=== PATIENT | female | born 1980 | race Caucasian/White ===

== ENCOUNTER 2022-05-14 10:59 | Emergency (ER) | payer BC, SELFPAY ==
[2022-05-14 11:45] VITALS: BMI 38.9
--- NOTE | 2022-05-14 11:55 | XRR_ITS ---
PROCEDURE INFORMATION: Exam: XR Right Knee Exam date and time: 05/14/2022 12:03 PM Age: 42 years old Clinical indication: Pain; Knee; Right; Additional info: Right knee pain TECHNIQUE: Imaging protocol: Radiologic exam of the right knee. Views: 3 views. COMPARISON: No relevant prior studies available. FINDINGS: Bones/joints: Small joint effusion and minimal patellar spurring. No acute fracture dislocation. Probable mild osteopenia. Well maintained joint spaces on this nonweightbearing exam. Soft tissues: Normal. Other findings: Three views submitted. XR/XR knee RT 3V* [id number] IMPRESSION: No acute fracture. Other findings as above.
--- NOTE | 2022-05-14 12:06 | ED_ITS ---
HPI - Extremity Problem General: Chief complaint: Extremity Injury, Lower Stated complaint: knee pain Time Seen by Provider: 05/14/22 11:07 History of Present Illness: Patient is a 42-year-old female comes to the ED with right knee pain. Patient injured right knee approximately 3-1/2 months ago. She describes having a twisted knee injury when she went to stand up. She went to [place] emergency department and was diagnosed with right knee sprain and put in a knee immobilizer. She then followed up with her PCP and she still having pain. She has not been referred to Ortho. She came here to the ED because she heard there are some good Ortho docs here in [place]. She rates her pain currently a 10 out of 10 in her right knee. Pain with any range of motion or weightbearing. Associated symptoms: Deny chest pain, fever(s) or rash Review of Systems Const: Denies: fever(s), chills or fatigue Eyes: Denies: change in vision or eye discomfort ENMT: Denies: throat pain, odynophagia, nasal discharge or nasal congestion Card: Denies: chest pain, palpitations, edema, swelling of feet/ankles, dyspnea on exertion or orthopnea Resp: Denies: dyspnea, productive cough or non-productive cough GI: Denies: abdominal pain, nausea, vomiting, diarrhea, constipation or hematochezia : Denies: flank pain, dysuria or hematuria Musc: Reports: extremity pain (Right knee pain) and limited range of motion (Right knee); Denies: neck pain, back pain or extremity swelling Skin/Breast: Denies: rash or new lesions Neuro: Denies: headache(s), numbness in extremities or weakness in extremities [facility] ED PFSH: Medical History No pertinent family history Surgical History No pertinent past surgical history Physical Exam Const: COMMON NORMALS: patient oriented x3 HENMT: COMMON NORMALS: normocephalic HEAD & SCALP: normocephalic MOUTH: Normal oral and palatal mucosa present THROAT: posterior oropharynx normal and uvula midline Neck/C-Spine: COMMON NORMALS: supple GENERAL: Yes normal visual inspection Resp: COMMON NORMALS: normal respiratory effort, No retractions, No use of accessory muscles and clear to auscultation bilaterally AUSCULTATION: clear to auscultation bilaterally Cardio: COMMON NORMALS: regular rate, regular rhythm, S1 normal heart sound present, S2 normal heart sound present, No gallops present (Cardio), No clicks present (Cardio), No murmurs present (Cardio) and Peripheral pulses 2+ through out RATE: regular rate RHYTHM: regular rhythm HEART SOUNDS: S1 normal heart sound present and S2 normal heart sound present PERIPHERAL PULSES: Peripheral pulses 2+ throughout GI: COMMON NORMALS: Normal to inspection, nondistended, normoactive bowel sounds present, Soft to palpation, non-tender and no masses PALPATION: Yes Soft to palpation : COMMON NORMALS: Yes no CVA tenderness BLADDER/KIDNEY EXAM: Yes no CVA tenderness Back/Pelvis: COMMON NORMALS: no CVA tenderness Extremity: NARRATIVE EXTREMITY EXAM: Right knee?tenderness to palpation throughout her knee. Limited range of motion due to pain. Neurovascular intact distally. Neuro: COMMON NORMALS: patient oriented x3 GAIT: Yes Normal gait present Skin: GENERAL SKIN EXAM: dry skin Course Vital Signs: Vital signs: Vital Signs Pulse Rate 86 05/14/22 13:35 Respiratory Rate 16 05/14/22 13:35 Blood Pressure 177/111 05/14/22 13:47 Pulse Oximetry 95 05/14/22 13:35 Oxygen Delivery Me thod 05/14/22 13:35 MDM - Extremity (Nontraumatic) Medical Decision Making Patient is a 42-year-old female comes to the ED with right knee pain. Patient injured right knee approximately 3-1/2 months ago. She describes having a twisted knee injury when she went to stand up. She went to [place] emergency department and was diagnosed with right knee sprain and put in a knee immobilizer. She then followed up with her PCP and she still having pain. She has not been referred to Ortho. She came here to the ED because she heard there are some good Ortho docs here in [place]. She rates her pain currently a 10 out of 10 in her right knee. Pain with any range of motion or weightbearing.vital stable. Right knee?tenderness to palpation throughout her knee. Limited range of motion due to pain. Neurovascular intact distally. Right knee x-ray shows no acute findings, but notes a small joint effusion and patellar spurring. Patient was put in a knee immobilizer and I placed an order with case management for patient be referred to Ortho for follow-up of knee pain. Return to ED precautions given. Patient understood and agreed with plan. Lab Data Radiology Impressions Knee X-Ray 05/14/22 11:55 IMPRESSION: No acute fracture. Other findings as above. Discharge Plan Discharge Patient Disposition: Home Clinical Impression: Knee pain, right Qualifiers: Chronicity: unspecified Qualified Code(s): M25.561 - Pain in right knee Condition: Stable Prescriptions: New ibuprofen 800 mg tablet 800 mg PO Q8H PRN (Reason: pain) Qty: 20 0RF Discharge Orders: Discharge ED (Routine); Ordered 05/14/22 Ordered By: Lukasz Blackwell Referrals: Chanda Rinaldi FNP [Primary Care Provider] - Discharge Diet: Regular Discharge Activity: Increase activity as tolerated Patient Instructions: Knee Pain (ED) Activity Restrictions/Additional Instructions: Follow-up with medical provider as directed. Case management should contact you in the next several days to set up an appointment with Orthopedic surgeon for follow-up. Take medications as prescribed. Wear knee immobilizer. Return to the ER or your medical provider if condition worsens. Please read and understand discharge instructions. Thank you for choosing [facility] for your healthcare needs today. Please realize this is an emergency room and that we are providing you with a medical screening exam and this may not be complete and all inclusive of all the testing and or work up that you may need to determine your ailment or severity of your illness. It is very important that you follow up as instructed or that you return to the Emergency Department should you have concerns or if your condition changes or worsens in any way. Coding Level of Care Code ED Commercial Marketing Specialist for Antonino Green
[2022-05-14 12:21] VITALS: RESP 16
[2022-05-14] MEDS: morphine 4 mg/mL SDV 1 mL IM (12:21)
[2022-05-14 13:35] VITALS: BP 210/142; PULSE 86; RESP 16; O2SAT 95
[2022-05-14 13:47] VITALS: BP 177/111
--- NOTE | 2022-05-16 09:29 | DCPLANNER ---
Addendum entered by Winsome Page 05/24/22 08:44: Patient had a follow up appointment scheduled with ortho - patient did attend appointment. Addendum entered by Winsome Page 05/18/22 09:46: Patient has a follow up appointment scheduled for Monday, May 23, 2022 at 4:[address] Blackwell at ortho. Clinic will call patient with appointment information. Addendum entered by Winsome Page 05/16/22 14:29: industrial sales manager received the following message from the ortho clinic regarding follow up appointment: attempt made to contact patient - left vm and mailed letter to contact our clinic to schedule w/ dr blackwell Original Note: industrial sales manager had message to schedule a follow up appointment for patient with ortho. industrial sales manager sent patients information to the front office staff at ortho. Patients information will be printed and reviewed. Clinic will call patient with appointment information.
== END 2022-05-14 13:56 | disposition home or self-care (01) ==
PROVIDERS: Emergency Provider Physician Assistant; PCP Nurse Practitioner Family
DX: M25.561 Pain in right knee (principal)
CPT/HCPCS: 29530; 73562; 96372; 99284; J2270

== ENCOUNTER 2022-05-23 16:15 | Outpatient (CLI) | payer BC, SELFPAY | END 2022-05-23 16:16 | disposition home or self-care (01) | LOC: SPT 16:15 | PROVIDERS: PCP Nurse Practitioner Family; Visit Provider Student in an Organized Health Care Education/Training Program | DX: Z46.89 Encounter for fitting and adjustment of other specified devices (principal); S83.206D Unspecified tear of unspecified meniscus, current injury, right knee, subsequent encounter; X58.XXXD Exposure to other specified factors, subsequent encounter | CPT/HCPCS: 97760; L1812 ==

== ENCOUNTER 2022-06-17 08:55 | Outpatient (CLI) | payer BC, SELFPAY ==
--- NOTE | 2022-06-17 09:30 | MR_ITS ---
WS: [id number] MRI RIGHT KNEE HISTORY: Twisting injury. Pain. COMPARISON: Radiograph 05/14/2022 Anterior cruciate ligament: Intact. Posterior cruciate ligament: Intact. Medial collateral ligament: Intact. Posterior lateral corner structures: Intact. Medial menisci: Mild surface fraying along the posterior horn towards the meniscal root. No definite tear is identified. Anterior horn is normal. Lateral meniscus: Intact. Normal signal, size and shape. Extensor mechanism: Distal quadriceps tendon and patellar tendons are intact. Fluid and soft tissue: Very small suprapatellar joint effusion. No Marrufo's cyst. There is a small marquis unt of edema extending along the inferior medial knee. Appears reactive. Osseous and articular structures: Patellofemoral compartment: Very mild thinning of the cartilage. No marrow edema. Medial compartment: Mild cortical and cartilage irregularity with a small amount of underlying marrow edema involving the nonweightbearing surface of the anterior medial femoral condyle. No fractures ar e identified. Cartilage along the weightbearing surface is preserved. Lateral compartment: Normal. No fractures or marrow edema. MR/MR knee RT wo con* [id number] IMPRESSION: 1. No ACL tear. 2. Mild fraying along the surfaces posterior horn medial meniscus towards the meniscal root. No tear. 3. Mild osteochondral injury involving the nonweightbearing surface of the ant erior medial femoral condyle. There is mild underlying marrow edema with osteoc hondral irregularity.
== END 2022-06-17 08:56 | disposition home or self-care (01) ==
PROVIDERS: PCP Nurse Practitioner Family; Visit Provider Student in an Organized Health Care Education/Training Program
DX: M25.561 Pain in right knee (principal)
CPT/HCPCS: 73721

== ENCOUNTER 2022-07-25 11:10 | Emergency (ER) | payer BC, SELFPAY ==
[2022-07-25 11:28] VITALS: BP 183/123; PULSE 126; RESP 16; TEMP 36.7; O2SAT 98; BMI 42.7
--- NOTE | 2022-07-25 11:51 | USCV_ITS ---
Evaristo Hardy Age: 42 Gender: F : 1980 Exam Date: 07/25/2022 12:01 Ordering Phys: Alicia Linda Technologist: MICHAEL Exam Location: [facility] [place] Indication: Rt LE Pain in popliteal area HISTORY: Lower extremity pain. PROCEDURES: Venous duplex imaging was performed in only the right lower extremity. The following venous structures were evaluated: common femoral vein, profunda vein, proximal portion of the greater saphenous vein, superficial femoral vein, and the popliteal vein. In addition, the posterior tibial and peroneal trunk were evaluated. Serial compression, augmentation maneuvers, and spectral Doppler flow evaluation were performed. FINDINGS: No evidence of DVT seen in any vessel visualized at this time. CONCLUSIONS No evidence of right lower extremity DVT. Chapin Prince MD (Electronically Signed) Final Date: 25 Jul 2022 12:42 S
--- NOTE | 2022-07-25 11:52 | W.ED.EXTPRO ---
HPI - Extremity Problem General: Chief complaint: Extremity Injury, Lower Stated complaint: Right leg/Knee injury, Swollen Time Seen by Provider: 07/25/22 12:00 Source: patient Mode of arrival: ambulatory Limitations: no limitations History of Present Illness: Patient presents emergency department today for evaluation treatment of acute worsening of right knee issues. Patient reports chronic issues with her right knee now over the last 6 to 8 months. She has already been seen and evaluated here in the emergency department where she received a referral to orthopedics. Orthopedics did an MRI with some mild findings but no significant concerns requiring immediate surgical intervention. Patient received a steroid injection and started physical therapy approximately 3 weeks ago. Patient reports she has not noticed any improvement of her right knee pain and states it is actually getting a little bit worse. She denies any new injuries to the knee. She comes in as her right knee became swollen and red last night. Patient has a photo on her phone which does correlate with her description of redness around the joint. There is no significant erythema today but, patient is more acutely tender in the popliteal region since last night as well. Patient is tachycardic and hypertensive. She reports a history of hypertension and is supposed be on blood pressure medicine but, ran out and has not had any type of follow-up with her primary care doctor. Patient states her heart rate is up because she is in pain. She reports she has not had anything for her pain today. Review of Systems General: Reports: 10 or more systems reviewed and unremarkable except in HPI and below PFSH ED PFSH: Medical History No pertinent family history Surgical History No pertinent past surgical history Physical Exam Const: COMMON NORMALS: no acute distress, patient oriented x3 and alert HENMT: COMMON NORMALS: normocephalic, atraumatic and hearing grossly normal bilaterally HEAD & SCALP: normocephalic and atraumatic Eye: COMMON NORMALS: Equal, round and reactive pupils present, EOMs intact bilaterally and conjunctivae normal CONJUNCTIVA: Yes conjunctivae normal PUPIL: Yes Equal, round and reactive pupils present Neck/C-Spine: COMMON NORMALS: full ROM and no JVD Lymph: LYMPHATIC: no lymphadenopathy noted Resp: COMMON NORMALS: normal respiratory effort, No retractions and No use of accessory muscles Cardio: COMMON NORMALS: no JVD and regular rate RATE: regular rate Extremity: NARRATIVE EXTREMITY EXAM: Patient has tenderness on palpation to the right popliteal region without significant pain into the right calf. Homans negative. Patient does have some flexion extension of the right knee but indicates pain with mobility. Neuro: COMMON NORMALS: patient oriented x3 SENSORIUM/ORIENTATION: Yes alert Psych: COMMON NORMALS: mental status grossly normal, Normal thought process present, cooperative and normal affect THOUGHT PROCESS: Normal thought process present Skin: COMMON NORMALS: no rashes or lesions noted and turgor normal GENERAL SKIN EXAM: no rashes or lesions noted and turgor normal Course Vital Signs: Vital signs: Vital Signs Temperature 98.0 F 07/25/22 11:28 Pulse Rate 126 H 07/25/22 11:28 Respiratory Rate 16 07/25/22 11:28 Blood Pressure 183/123 07/25/22 11:28 Pulse Oximetry 98 07/25/22 11:28 Oxygen Delivery Me thod Room Air 07/25/22 11:28 MDM - Extremity (Nontraumatic) Medical Decision Making Patient has had evaluation by orthopedics as well as an MRI. Patient is currently on a treatment plan involving steroid injections and physical therapy. Patient states that physical therapy is not helping. She does have a photo of her knee last night where there is noticeable erythema around the joint and, patient reports acutely worsening right popliteal pain. For that reason we did go ahead and proceed on with an ultrasound to rule out DVT of her acute worsening of pain in this area. Ultrasound was negative for DVT. Patient was started on NSAIDs and topical NSAID for her pain. Encouraged her to call orthopedics and let them know of her worsening discomfort as they may wish to move her follow-up appointment up as it does indicate they were going to discuss the possibility of a knee scope at that time. Differential Diagnosis Likely cellulitis, superficial thrombophlebitis and deep vein thrombosis of lower extremity (Internal derangement of right knee, meniscal injury) Discharge Plan Discharge Patient Disposition: Home Clinical Impression: Knee pain, right, Popliteal pain Condition: Stable Prescriptions: New Celebrex 100 mg capsule 100 mg PO BID 10 Days Qty: 20 0RF Voltaren Arthritis Pain 1 % gel 4 g topical QID Qty: 100 0RF Rx Instructions: apply to right knee- front and back No Action (DME) Hinged knee brace See Rx Instructions .Route .MEDSUPPLY Qty: 1 0RF Rx Instructions: As directed cyclobenzaprine 10 mg tablet 10 mg PO TID PRN (Reason: muscle spasm) 14 Days Qty: 42 0RF ibuprofen 800 mg tablet 800 mg PO Q8H PRN (Reason: pain) Qty: 20 0RF Discharge Orders: Discharge ED (Routine); Ordered 07/25/22 Ordered By: Alicia Linda Referrals: Chanda Rinaldi FNP [Primary Care Provider] - Discharge Diet: Usual diet Discharge Activity: Limit activity as instructed Patient Instructions: Knee Pain (ED) Activity Restrictions/Additional Instructions: Given the development of redness and pain in the back of your knee, we did rule out a blood clot today in the emergency department. I Ashwini try you on some new medication that I do not think you have attempted before. While you take Celebrex, do not take any other Aleve, Advil, ibuprofen, or Motrin. You can still take Tylenol. Keep wearing your brace as recommended. I will reach out to our case management workers to see about your upcoming appointment however, if you have not heard anything in the next day or 2 I do recommend reaching out to the orthopedic office to discuss moving up your follow-up appointment to discuss continued knee issues. Coding Level of Care Code ED Directional Survey Drafter for Antonino Green
[2022-07-25] MEDS: naproxen 500 mg Tablet PO (12:20)
[2022-07-25] MEDS: tizanidine 4 mg Tablet PO (12:20)
== END 2022-07-25 13:26 | disposition home or self-care (01) ==
PROVIDERS: Emergency Provider Physician Assistant; PCP Nurse Practitioner Family
DX: M25.561 Pain in right knee (principal)
CPT/HCPCS: 93971; 99284

== ENCOUNTER 2023-04-05 13:45 | Emergency (ER) | payer BC, SELFPAY ==
--- NOTE | 2023-04-05 13:47 | XR_ITS ---
WS: [id number] Portable AP upright chest, 04/05/2023 Clinical Data: cp Comparison: None. Findings: No nodules, masses or effusions are seen. The heart is normal. The pulmonary vascularity is not increased. No pneumonia or pneumothorax is seen. Impression: Negative chest.
--- NOTE | 2023-04-05 13:47 | ECG_ITS ---
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 Measurements Intervals [place] Rate: 90 P: 56 MI: 195 QRS: 7 QRSD: 88 T: 30 QT: 356 QTc: 437 Interpretive Statements SINUS RHYTHM POSSIBLE LEFT ATRIAL ENLARGEMENT [-0.1mV P-WAVE IN V1/V2] POSSIBLE LEFT VENTRICULAR HYPERTROPHY [VOLTAGE CRITERIA PLUS LAE OR QRS WIDENING] NONSPECIFIC ST & T-WAVE ABNORMALITY INTERPRETATION BASED ON A DEFAULT AGE OF 40 YEARS No previous ECG available for comparison Electronically Signed On 04-05-2023 18:26:37 ATMOSPHERIC CHEMIST by Gentry Yost M.D. [email or web address]
[2023-04-05 13:55] VITALS: BP 150/108; PULSE 93; RESP 16; O2SAT 98; BMI 41.1
--- NOTE | 2023-04-05 13:56 | ED_ITS ---
HPI - Chest Pain 2 General: Chief Complaint: Chest Pain Stated Complaint: chest pain Time Seen by Provider: 04/05/23 13:46 Mode of arrival: ambulatory Limitations: no limitations History of Present Illness: 43-year-old female who states she has a history of high blood pressure states that today she was not feeling well did take her blood pressure was elevated she states she been having some chest pain along with headache and abdominal pain. States her pain is a 5 out of 10 she had went to the clinic and had hypertension there and was sent here. She is on metoprolol extended release 50 mg for her blood pressure no other meds. She denies any vomiting or diarrhea. Associated symptoms: Reports abdominal pain; Deny dyspnea, fever(s), nausea or vomiting Review of Systems 2 Const: Denies: fever(s), chills, body aches or change in appetite ENMT: Denies: throat pain or dental pain Card: Reports: chest pain Resp: Denies: dyspnea GI: Reports: abdominal pain; Denies: nausea, vomiting or diarrhea Musc: Denies: neck pain or back pain Skin/Breast: Denies: rash Neuro: Reports: headache(s) PFSH ED 2 PFSH: Medical History No pertinent family history Surgical History No pertinent past surgical history Physical Exam 2 Const: COMMON NORMALS: no acute distress, patient oriented x3 and healthy appearing HENMT: COMMON NORMALS: normocephalic and atraumatic HEAD & SCALP: n ormocephalic and atraumatic Eye: COMMON NORMALS: conjunctivae normal CONJUNCTIVA: Yes conjunctivae normal Neck/C-Spine: COMMON NORMALS: full ROM and supple Chest: COMMONS NORMALS: normal inspection of the chest Resp: COMMON NORMALS: normal respiratory effort, No retractions, No use of accessory muscles and clear to auscultation bilaterally AUSCULTATION: clear to auscultation bilaterally Cardio: COMMON NORMALS: regular rate, regular rhythm and No murmurs present (Cardio) RATE: regular rate RHYTHM: regular rhythm GI: COMMON NORMALS: Normal to inspection, nondistended, normoactive bowel sounds present, Soft to palpation, non-tender and no masses PALPATION: Yes Soft to palpation Extremity: COMMON NORMALS: normal to inspection and full ROM Neuro: COMMON NORMALS: patient oriented x3, moves all extremities and no focal motor deficits Psych: COMMON NORMALS: mental status grossly normal, Normal thought process present and cooperative THOUGHT PROCESS: Normal thought process present Skin: COMMON NORMALS: no rashes or lesions noted and no wounds GENERAL SKIN EXAM: no rashes or lesions noted Course 2 Vital Signs: Vital signs: Vital Signs Pulse Rate 69 04/05/23 17:06 Respiratory Rate 16 04/05/23 14:17 Blood Pressure 152/67 04/05/23 17:06 Pulse Oximetry 97 04/05/23 17:06 Oxygen Delivery Me thod Room Air 04/05/23 13:55 MDM - Chest Pain Medical Decision Making Patient presents here with chest pain atypical in nature patient's blood pressure has improved here we will up her metoprolol from 50 daily to 100 she is take a log of her blood pressure follow-up with PCP she has no signs of acute coronary syndrome she is stable for discharge return if worsening. Medical Records I reviewed the patient's medical records. Lab Data I reviewed the patient's lab results. 04/05/23 13:57 04/05/23 13:57 Laboratory Results WBC 12.77 10^3/uL (3.29-11.43) H 04/05/23 13:57 RBC 5.23 10^6/uL (3.85-5.65) 04/05/23 13:57 Hgb 14.90 g/dL (11.27-16.99) 04/05/23 13:57 Hct 45.6 % (36-47) 04/05/23 13:57 MCV 87.2 fl (85-98) 04/05/23 13:57 MCH 28.5 pg (27-33) 04/05/23 13:57 MCHC 32.7 g/dL (30-55) 04/05/23 13:57 RDW 14.6 % (12.1-15.1) 04/05/23 13:57 Plt Count 303 10^3/cmm (157-399) 04/05/23 13:57 MPV 10.9 fL (7.4-10.4) H 04/05/23 13:57 Neut % (Auto) 74.0 % 04/05/23 13:57 Lymph % (Auto) 19.1 % 04/05/23 13:57 [place] % (Auto) 5.2 % 04/05/23 13:57 Eos % (Auto) 0.5 % 04/05/23 13:57 Baso % (Auto) 0.6 % 04/05/23 13:57 Neut # (Auto) 9.45 10^3/uL (1.8-7.7) H 04/05/23 13:57 Lymph # (Auto) 2.4 10^3/uL (0.8-4.8) 04/05/23 13:57 [place] # (Auto) 0.7 10^3/uL (0.2-0.9) 04/05/23 13:57 Eos # (Auto) 0.1 10^3/uL (0.0-0.8) 04/05/23 13:57 Baso # (Auto) 0.1 10^3/uL (0.0-0.1) 04/05/23 13:57 Nucleated RBC % (auto) 0 % 04/05/23 13:57 Nucleated RBCs # 0.0 /100WBC 04/05/23 13:57 PT 12.40 SECONDS (12.1-14.9) 04/05/23 13:57 INR 0.89 (0.8-1.2) 04/05/23 13:57 Sodium 139 mmol/L (136-145) 04/05/23 13:57 Potassium 4.4 mmol/L (3.5-5.1) 04/05/23 13:57 Chloride 104 mmol/L (98-107) 04/05/23 13:57 Carbon Dioxide 18 mmol/L (22-29) L 04/05/23 13:57 Anion Gap 21.4 (5-19) H 04/05/23 13:57 BUN 14 mg/dL (6-20) 04/05/23 13:57 Creatinine 0.8 mg/dL (0.5-0.9) 04/05/23 13:57 GFR Calculation 79.0 mL/min (90-130) L 04/05/23 13:57 Glucose 109 mg/dL (65-115) 04/05/23 13:57 Calculated Osmolality 289 mOsm/kg (285-295) 04/05/23 13:57 Calcium 9.9 mg/dL (8.5-10.5) 04/05/23 13:57 Total Bilirubin 0.2 mg/dL (0.15-1.2) 04/05/23 13:57 AST 15 U/L (0-32) 04/05/23 13:57 ALT 19 U/L (0-33) 04/05/23 13:57 Alkaline Phosphatase 78 U/L (35-105) 04/05/23 13:57 Troponin T Baseline 8 ng/L (0-10) 04/05/23 13:57 Troponin T 120 Minute 7.55 ng/L (0-10) 04/05/23 16:48 Delta Troponin T -0.45 ABS# (0-10) L 04/05/23 16:48 Total Protein 6.8 g/dL (6.6-8.7) 04/05/23 13:57 Albumin 4.4 g/dL (3.5-5.2) 04/05/23 13:57 Globulin 2.4 g/dL (1.3-4.6) 04/05/23 13:57 Lipase 18 U/L (13-60) 04/05/23 13:57 All radiology interpretation(s) finalized by discharge EKG Data EKG 1: I personally reviewed and interpreted this EKG as follows: EKG interpretation date: 04/05/23 EKG interpretation time: 13:51 Interpretation: nsr hr [address] or t wave abnormalities qrs 88 qtc 404 EKG 2: I personally reviewed and interpreted this EKG as follows: EKG interpretation date: 04/05/23 EKG interpretation time: 15:50 Interpretation: nsr hr [address] or t wave abnormalities qrs 97 qtc 412 Discharge Plan Discharge Patient Disposition: Home Clinical Impression: Chest pain, Hypertension Condition: Stable Prescriptions: New metoprolol succinate 100 mg tablet extended release 24 hr 100 mg PO DAILY Qty: 30 0RF No Action (DME) Hinged knee brace See Rx Instructions .Route .MEDSUPPLY Qty: 1 0RF Rx Instructions: As directed cyclobenzaprine 10 mg tablet 10 mg PO TID PRN (Reason: muscle spasm) 14 Days Qty: 42 0RF ibuprofen 800 mg tablet 800 mg PO Q8H PRN (Reason: pain) Qty: 20 0RF metoprolol succinate 50 mg Tablet Extended Release 24 Hr 50 mg PO DAILY Aspir-81 81 mg Tablet,Delayed Release (Dr/Ec) 81 mg PO DAILY Discharge Orders: Discharge ED (Routine); Ordered 04/05/23 Ordered By: Michael Hudson Referrals: Chanda Rinaldi FNP [Primary Care Provider] - 1-3 days Discharge Diet: Advance as tolerated Discharge Activity: Resume usual activity Patient Instructions: Hypertension (ED) Coding Level of Care Code ED Wood Shingle Roofer for Antonino Green
[2023-04-05 14:00] VITALS: BP 137/95
[2023-04-05 14:06] LABS: Basophils # 0.1 10^3/uL (0.0-0.1); Basophils % 0.6 %; Eosinophils # 0.1 10^3/uL (0.0-0.8); Eosinophils % 0.5 %; Hematocrit 45.6 % (36-47); Lymphocytes # 2.4 10^3/uL (0.8-4.8); Lymphocytes % 19.1 %; Mean Corpuscular HGB Conc 32.7 g/dL (30-55); Mean Corpuscular Hemoglobin 28.5 pg (27-33); Mean Corpuscular Volume 87.2 fl (85-98); Mean Platelet Volume 10.9 fL (7.4-10.4); Monocytes # 0.7 10^3/uL (0.2-0.9); Monocytes % 5.2 %; Neutrophils # 9.45 10^3/uL (1.8-7.7); Nucleated Red Blood Cells % 0 %; Platelet Count 303 10^3/cmm (157-399); Red Blood Count 5.23 10^6/uL (3.85-5.65); Red Cell Distribution Width 14.6 % (12.1-15.1); White Blood Count 12.77 10^3/uL (3.29-11.43)
--- NOTE | 2023-04-05 14:08 | PC.PHAR ---
PT STATES WAS GIVEN 2 ZOFRAN 4 MG AT THE OFFICE. 04/05/23
[2023-04-05] MEDS: ondansetron 2 mg/ML SDV 2 mL 4 MG IVP (14:16)
[2023-04-05 14:17] VITALS: RESP 16; O2SAT 98
[2023-04-05] MEDS: morphine 4 mg/mL SDV 1 mL IVP (14:17)
[2023-04-05 14:20] LABS: INR 0.89 (0.8-1.2)
[2023-04-05 14:26] LABS: Troponin(5th) Baseline 8 ng/L (0-10)
[2023-04-05 14:32] LABS: Alanine Aminotransferase 19 U/L (0-33); Albumin Level 4.4 g/dL (3.5-5.2); Alkaline Phosphatase 78 U/L (35-105); Blood Urea Nitrogen 14 mg/dL (6-20); Calcium 9.9 mg/dL (8.5-10.5); Carbon Dioxide 18 mmol/L (22-29); Chloride 104 mmol/L (98-107); Creatinine Clr Calc Pharmacy 111.5642; Globulin 2.4 g/dL (1.3-4.6); Glucose 109 mg/dL (65-115); Lipase 18 U/L (13-60); Osmolality Calculated 289 mOsm/kg (285-295); Sodium 139 mmol/L (136-145); Total Bilirubin 0.2 mg/dL (0.15-1.2); Total Protein 6.8 g/dL (6.6-8.7)
[2023-04-05 14:42] LABS: Anion Gap 21.4 (5-19)
[2023-04-05 14:43] LABS: Aspartate Amino Transferase 15 U/L (0-32); Potassium 4.4 mmol/L (3.5-5.1)
--- NOTE | 2023-04-05 15:50 | ECG_ITS ---
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 Measurements Intervals [place] Rate: 90 P: 50 [place]: 198 QRS: 18 QRSD: 97 T: 29 QT: 365 QTc: 447 Interpretive Statements SINUS RHYTHM NONSPECIFIC ST & T-WAVE ABNORMALITY Compared to ECG 04/05/2023 13:51:02 No significant changes Electronically Signed On 04-05-2023 18:33:27 SLING OPERATOR by Gentry Yost M.D. [id number]
[2023-04-05 17:06] VITALS: BP 152/67; PULSE 69; O2SAT 97
[2023-04-05 17:37] LABS: Troponin 5 2HR 7.55 ng/L (0-10)
[2023-04-05 17:39] LABS: Troponin 5 2HR Delta -0.45 ABS# (0-10)
[2023-04-05 18:08] VITALS: BP 133/82; PULSE 70; O2SAT 97
== END 2023-04-05 18:10 | disposition home or self-care (01) ==
PROVIDERS: Emergency Provider Emergency Medicine; PCP Nurse Practitioner Family
DX: R07.9 Chest pain, unspecified (principal); I10 Essential (primary) hypertension; Z79.82 Long term (current) use of aspirin
CPT/HCPCS: 36415; 71045; 80053; 83690; 84484; 85025; 85610; 93005; 96374; 96375; 99285; J2270; J2405

== ENCOUNTER 2024-01-28 13:43 | Emergency (ER) | payer BC, SELFPAY ==
[2024-01-28 13:48] VITALS: BP 156/99; PULSE 107; RESP 18; TEMP 36.7; O2SAT 97; BMI 39.4
--- NOTE | 2024-01-28 15:08 | ED_ITS ---
HPI - General Adult 2 General: Chief complaint: General Medical Stated complaint: temp low, b/p uncontroble, infection on incision Time Seen by Provider: 01/28/24 14:05 History of Present Illness: 43-year-old female who presents to the mergency room complaining of generally not feeling well. 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 This was done several weeks ago postoperatively she had an infection in incision site and recently finished a course of clindamycin. A few days ago she had a couple episodes of diarrhea but that has resolved she actually states she is a little bit more constipated now she has been titrating down on prednisone she was on 10 mg daily she currently is on 7. Patient states her blood pressure has been fluctuating as well today is generally been running a little bit elevated. No fever sweats or chills. She not had any syncopal episodes Associated symptoms: Deny chest pain, dyspnea or rash Related Data Home Medications Medication Instructions Recorded Confirmed aspirin 81 mg tablet,delayed 81 mg PO DAILY 04/05/23 04/05/23 release metoprolol succinate 50 mg 50 mg PO DAILY 04/05/23 04/05/23 tablet,extended release 24 hr Previous Rx's Medication Instructions Recorded ibuprofen 800 mg tablet 800 mg PO Q8H PRN pain #20 tabs 05/14/22 Hinged knee brace #1 ea 05/23/22 cyclobenzaprine 10 mg tablet 10 mg PO TID PRN muscle spasm 14 06/20/22 days #42 tabs metoprolol succinate 100 mg 100 mg PO DAILY #30 tabs 04/05/23 tablet,extended release 24 hr Allergies Allergy/AdvReac Type Severity Reaction Status Date / Time Penicillins Allergy ALGY-Hives Verified 01/28/24 13:54 topiramate [From Topamax] Allergy ALGY-Hives Verified 01/28/24 13:54 Review of Systems 2 Const: Denies: fever(s) or chills Card: Denies: chest pain Resp: Denies: dyspnea GI: Denies: abdominal pain : Denies: dysuria, urinary frequency or urinary urgency Musc: Denies: neck pain or back pain Skin/Breast: Denies: rash PFSH ED 2 PFSH: Medical History No pertinent family history Surgical History No pertinent past surgical history Physical Exam 2 Const: GENERAL APPEARANCE: comfortable ORIENTATION/CONSCIOUSNESS: Yes awake, Yes oriented to person, Yes oriented to place and Yes oriented to time HENMT: COMMON NORMALS: normocephalic, atraumatic and hearing grossly normal bilaterally HEAD & SCALP: normocephalic and atraumatic Resp: COMMON NORMALS: normal respiratory effort, No retractions, No use of accessory muscles and clear to auscultation bilaterally AUSCULTATION: clear to auscultation bilaterally Cardio: COMMON NORMALS: regular rate, regular rhythm and No murmurs present (Cardio) RATE: regular rate RHYTHM: regular rhythm GI: COMMON NORMALS: Soft to palpation and No hepatosplenomegaly present A USCULTATION: Yes normoactive bowel sounds PALPATION: Yes Soft to palpation, No Tenderness to palpation present (GI), No Guarding due to palpation present (GI) and Yes No hepatosplenomegaly present Extremity: COMMON NORMALS: normal to inspection, capillary refill normal, no clubbing, cyanosis or edema, no calf tenderness and no pedal edema Neuro: SENSORIUM/ORIENTATION: Yes oriented to person, Yes oriented to place and Yes oriented to time Skin: OTHER: Dehiscence of the trocar site in the right side of the abdomen mid abdomen. Is not reddened or inflamed and appears to be healing by secondary intent. No induration no apparent drainage Course 2 Vital Signs: Vital signs: Vital Signs Temperature 98.0 F 01/28/24 13:48 Pulse Rate 95 01/28/24 16:45 Respiratory Rate 18 01/28/24 13:48 Blood Pressure 131/100 01/28/24 15:45 Pulse Oximetry 97 01/28/24 16:45 Oxygen Delivery Me thod Room Air 01/28/24 13:48 [facility] - General Adult Medical Records I reviewed the patient's medical records. Lab Data I reviewed the patient's lab results. 01/28/24 15:06 01/28/24 15:06 Radiology Impressions Chest X-Ray 01/28/24 15:09 IMPRESSION: No acute findings. Laboratory Results WBC 8.06 10^3/uL (3.29-11.43) 01/28/24 15:06 RBC 5.22 10^6/uL (3.85-5.65) 01/28/24 15:06 Hgb 14.80 g/dL (11.27-16.99) 01/28/24 15:06 Hct 45.4 % (36-47) 01/28/24 15:06 MCV 87.0 fl (85-98) 01/28/24 15:06 MCH 28.4 pg (27-33) 01/28/24 15:06 MCHC 32.6 g/dL (30-55) 01/28/24 15:06 RDW 14.9 % (12.1-15.1) 01/28/24 15:06 Plt Count 251 10^3/cmm (157-399) 01/28/24 15:06 MPV 10.6 fL (7.4-10.4) H 01/28/24 15:06 Neut % (Auto) 53.2 % 01/28/24 15:06 Lymph % (Auto) 37.5 % 01/28/24 15:06 [place] % (Auto) 6.2 % 01/28/24 15:06 Eos % (Auto) 2.0 % 01/28/24 15:06 Baso % (Auto) 0.6 % 01/28/24 15:06 Neut # (Auto) 4.29 10^3/uL (1.8-7.7) 01/28/24 15:06 Lymph # (Auto) 3.0 10^3/uL (0.8-4.8) 01/28/24 15:06 [place] # (Auto) 0.5 10^3/uL (0.2-0.9) 01/28/24 15:06 Eos # (Auto) 0.2 10^3/uL (0.0-0.8) 01/28/24 15:06 Baso # (Auto) 0.1 10^3/uL (0.0-0.1) 01/28/24 15:06 Nucleated RBC % (auto) 0 % 01/28/24 15:06 Nucleated RBCs # 0.0 /100WBC 01/28/24 15:06 Sodium 138 mmol/L (136-145) 01/28/24 15:06 Potassium 3.5 mmol/L (3.5-5.1) 01/28/24 15:06 Chloride 99 mmol/L (98-107) 01/28/24 15:06 Carbon Dioxide 25 mmol/L (22-29) 01/28/24 15:06 Anion Gap 17.5 (5-19) 01/28/24 15:06 BUN 20 mg/dL (6-20) 01/28/24 15:06 Creatinine 0.9 mg/dL (0.5-0.9) 01/28/24 15:06 GFR Calculation 69.0 mL/min (90-130) L 01/28/24 15:06 Glucose 99 mg/dL (65-115) 01/28/24 15:06 Calculated Osmolality 289 mOsm/kg (285-295) 01/28/24 15:06 Calcium 9.2 mg/dL (8.5-10.5) 01/28/24 15:06 Magnesium 1.9 mg/dL (1.7-2.3) 01/28/24 15:06 Total Bilirubin 0.3 mg/dL (0.15-1.2) 01/28/24 15:06 AST 21 U/L (0-32) 01/28/24 15:06 ALT 46 U/L (0-33) H 01/28/24 15:06 Alkaline Phosphatase 74 U/L (35-105) 01/28/24 15:06 Total Protein 6.7 g/dL (6.6-8.7) 01/28/24 15:06 Albumin 4.2 g/dL (3.5-5.2) 01/28/24 15:06 Globulin 2.5 g/dL (1.3-4.6) 01/28/24 15:06 Random Cortisol 9.80 ug/dL (2.47-19.5) 01/28/24 15:06 Coronavirus (PCR) Negative (Negative) 01/28/24 16:02 Influenza A (PCR) Negative (Negative) 01/28/24 16:02 Influenza Type B (PCR) Negative (Negative) 01/28/24 16:02 RSV (PCR) Negative (Negative) 01/28/24 16:02 Discharge Plan Discharge Patient Disposition: Home Clinical Impression: Nausea, Hx of total adrenalectomy Condition: Stable Prescriptions: No Action (DME) Hinged knee brace See Rx Instructions .Route .MEDSUPPLY Qty: 1 0RF Rx Instructions: As directed cyclobenzaprine 10 mg tablet 10 mg PO TID PRN (Reason: muscle spasm) 14 Days Qty: 42 0RF ibuprofen 800 mg tablet 800 mg PO Q8H PRN (Reason: pain) Qty: 20 0RF metoprolol succinate 50 mg Tablet Extended Release 24 Hr 50 mg PO DAILY Aspir-81 81 mg Tablet,Delayed Release (Dr/Ec) 81 mg PO DAILY metoprolol succinate 100 mg tablet extended release 24 hr 100 mg PO DAILY Qty: 30 0RF Discharge Orders: Discharge ED (Routine); Ordered 01/28/24 Ordered By: Gregory Hassan Referrals: Chanda Rinaldi FNP [Primary Care Provider] - Discharge Activity: Increase activity as tolerated Patient Instructions: Opioid Safety, Pain Management Activity Restrictions/Additional Instructions: [facility]. It is very important that you follow up as instructed or that you return to the Emergency Department should you have concerns or if your condition changes or worsens in any way. You were seen in the emergency room with concern for adrenal insufficiency. Your laboratory show test showed cortisol level in normal range. There were no electrolyte abnormalities. Your white count was normal. Your EKG did not show any acute abnormalities. Chest x-ray was normal. There is no evidence of hypotension while you are in the emergency room. Your blood pressure was elevated recommend you continue to take your current medications for this and follow-up with your renovation plant supervisor or primary care doctor for adjustment of medications as appropriate. We do not often adjust medications in the emergency room for elevated blood pressures as it has been found to be more likely to lead to hypotensive episodes which would be problems some given your history. Examination of the wound that you had reported previously infected appears to be healing by secondary intent after finishing her antibiotics and does not appear to be infected at this time. Recommend you follow-up with your endocrine team or your primary care doctor within the next week. Some of your symptoms may be caused by a viral infection we did not do a COVID flu and RSV swab we will contact you with the results when they are available. Coding Level of Care Code ED Reservations Sales Agent for Antonino Green
--- NOTE | 2024-01-28 15:09 | ECG_ITS ---
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
--- NOTE | 2024-01-28 15:09 | XRR_ITS ---
PROCEDURE INFORMATION: Exam: XR Chest Exam date and time: 01/28/2024 3:22 PM Age: 43 years old Clinical indication: Cough and dyspnea; Patient HX: Cough; Chest congestion; Fever TECHNIQUE: Imaging protocol: Radiologic exam of the chest. Views: 1 view. COMPARISON: CR XR chest 1V portable [id number] 04/05/2023 2:05 PM FINDINGS: Lungs: Unremarkable. No consolidation or mass. Pleural spaces: Unremarkable. No pleural effusion. No pneumothorax. Heart/Mediastinum: Unremarkable. No cardiomegaly. Bones/joints: Unremarkable. XR/XR chest 1V portable [id number] IMPRESSION: No acute findings.
[2024-01-28 15:11] LABS: Basophils # 0.1 10^3/uL (0.0-0.1); Basophils % 0.6 %; Eosinophils # 0.2 10^3/uL (0.0-0.8); Hematocrit 45.4 % (36-47); Lymphocytes % 37.5 %; Mean Corpuscular HGB Conc 32.6 g/dL (30-55); Mean Corpuscular Hemoglobin 28.4 pg (27-33); Mean Platelet Volume 10.6 fL (7.4-10.4); Monocytes # 0.5 10^3/uL (0.2-0.9); Monocytes % 6.2 %; Neutrophils # 4.29 10^3/uL (1.8-7.7); Neutrophils % 53.2 %; Nucleated Red Blood Cells % 0 %; Platelet Count 251 10^3/cmm (157-399); Red Blood Count 5.22 10^6/uL (3.85-5.65); Red Cell Distribution Width 14.9 % (12.1-15.1); White Blood Count 8.06 10^3/uL (3.29-11.43)
[2024-01-28 15:29] LABS: Alanine Aminotransferase 46 U/L (0-33); Albumin Level 4.2 g/dL (3.5-5.2); Alkaline Phosphatase 74 U/L (35-105); Anion Gap 17.5 (5-19); Aspartate Amino Transferase 21 U/L (0-32); Blood Urea Nitrogen 20 mg/dL (6-20); Calcium 9.2 mg/dL (8.5-10.5); Carbon Dioxide 25 mmol/L (22-29); Chloride 99 mmol/L (98-107); Globulin 2.5 g/dL (1.3-4.6); Glucose 99 mg/dL (65-115); Osmolality Calculated 289 mOsm/kg (285-295); Potassium 3.5 mmol/L (3.5-5.1); Sodium 138 mmol/L (136-145); Total Bilirubin 0.3 mg/dL (0.15-1.2); Total Protein 6.7 g/dL (6.6-8.7)
[2024-01-28 15:45] VITALS: BP 131/100; PULSE 88; O2SAT 95
[2024-01-28 15:45] LABS: Magnesium 1.9 mg/dL (1.7-2.3)
--- NOTE | 2024-01-28 16:39 | PC.NURSE ---
ORTHOSTATIC VITALS WRITTEN DOWN AND GIVEN TO PROVIDER.
[2024-01-28 16:45] VITALS: PULSE 95; O2SAT 97
[2024-01-28 17:09] LABS: Covid PCR NEGATIVE (Negative); Influenza A NEGATIVE (Negative); Influenza B NEGATIVE (Negative); Respiratory Syncytial Virus Ce NEGATIVE (Negative)
== END 2024-01-28 16:47 | disposition home or self-care (01) ==
PROVIDERS: Emergency Provider Family Medicine; PCP Nurse Practitioner Family
DX: R11.0 Nausea (principal); Z98.890 Other specified postprocedural states; Z11.52 Encounter for screening for COVID-19
CPT/HCPCS: 0241U; 36415; 71045; 80053; 82533; 83735; 85025; 93005; 99285